=== PATIENT | female | born 1965 | race Caucasian/White ===

== ENCOUNTER 2024-09-01 10:45 | Emergency (ER) | payer BC ==
[~2024-09-01] VITALS: Ht 168.9 cm; Wt 61.6 kg
[~2024-09-01 10:45] MED LIST: AMOXICILLIN/CL875 MG PO; NASONEX50 MCG/AC NAB; ROCEPHIN 1 GM1 GM IM; SOLU-MEDROL125 MG IM
[2024-09-01 10:52] VITALS: BP 176/94
[2024-09-01 11:00] VITALS: BP 158/91
[2024-09-01 11:15] VITALS: BP 163/92
[2024-09-01 11:30] VITALS: BP 148/86
[2024-09-01 11:45] VITALS: BP 139/80
[2024-09-01] MEDS ORDERED: IBUPROFEN600 MG PO (11:46)
[2024-09-01] MEDS ORDERED: MUCINEX1200 MG PO (11:46)
[2024-09-01 11:52] VITALS: BP 139/80
== END 2024-09-01 12:03 | disposition home or self-care (01) | DRG 153 ==
LOC: ED 10:45
DX: J06.9 Acute upper respiratory infection, unspecified (principal); I10 Essential (primary) hypertension; E78.5 Hyperlipidemia, unspecified; K21.9 Gastro-esophageal reflux disease without esophagitis; Z20.822 Contact with and (suspected) exposure to COVID-19